=== PATIENT | male | born 1955 | race Caucasian/White ===

== ENCOUNTER 2022-01-10 01:05 | Emergency (ER) | payer MEDICARE, OTHER ==
[~2022-01-10] VITALS: Ht 185.4 cm; Wt 97.7 kg
--- NOTE | 2022-01-10 01:16 | PHYS DOC ---
General Adult EDM: Chief Complaint: HIP PAIN HPI: HPI: Patient is a 66 year old male who was brought here by EMS from home for evaluation of right hip pain. Patient said he was getting ready go to bed, he was walking and hit living room, he tripped and fell down on his right hip, hit the hardwood floor. Patient denies any head or neck injury, denies any knee pain, denies any leg pain, denies any upper extremity pain. Patient denies any back pain. Patient is not on any blood thinner. Patient denies any chest pain or any trouble breathing before the fall. Review of Systems: Review of Systems: Constitutional: Denies fever or chills. [] Eyes: Denies change in visual acuity. [] HENT: Denies nasal congestion or sore throat. [] Respiratory: Denies cough or shortness of breath. [] Cardiovascular: Denies chest pain or edema. [] GI: Denies abdominal pain, nausea, vomiting, bloody stools or diarrhea. [] : Denies dysuria. [] Musculoskeletal: Denies back pain, positive for right hip Integument: Denies rash. [] Neurologic: Denies headache, focal weakness or sensory changes. [] Endocrine: Denies polyuria or polydipsia. [] Lymphatic: Denies swollen glands. [] Psychiatric: Denies depression or anxiety. [] Heart Score: C/O Chest Pain: N/A Risk Factors: Risk Factors: DM, Current or recent (<one month) smoker, HTN, HLP, family history of CAD, obesity. Risk Scores: Score 0 - 3: 2.5% MACE over next 6 weeks - Discharge Home Score 4 - 6: 20.3% MACE over next 6 weeks - Admit for Clinical Observation Score 7 - 10: 72.7% MACE over next 6 weeks - Early Invasive Strategies Current Medications: Current Medications Medications (Trade) Dose Ordered Sig/Doug Start Time Stop Time Status Last Admin Dose Admin Fentanyl Citrate (Fentanyl 2ml Vial) 50 mcg 1X ONCE 01/10/22 01:15 01/10/22 01:16 UNV Ondansetron HCl (Zofran) 4 mg 1X ONCE 01/10/22 01:15 01/10/22 01:16 UNV Physical Exam: PE: Constitutional: Well developed, well nourished, no acute distress, non-toxic appearance. [] HENT: Normocephalic, atraumatic, bilateral external ears normal, oropharynx moist, no oral exudates, nose normal. [] Eyes: PERRLA, EOMI, conjunctiva normal, no discharge. [] Neck: Normal range of motion, no tenderness, supple, no stridor. [] Cardiovascular:Heart rate regular rhythm, no murmur [] Lungs & Thorax: Bilateral breath sounds clear to auscultation [] Abdomen: Bowel sounds normal, soft, no tenderness, no masses, no pulsatile masses. [] Skin: Warm, dry, no erythema, no rash. [] Back: No tenderness, no CVA tenderness. [] Extremities: Right hip is tender to palpation, pelvis stable, leg is not shortened or rotated. Neurologic: Alert and oriented X 3, normal motor function, normal sensory function, no focal deficits noted. [] Psychologic: Affect normal, judgement normal, mood normal. [] Current Patient Data: Labs: Laboratory Tests Test 01/10/22 03:10 White Blood Count 9.7 x10^3/uL Red Blood Count 3.94 x10^6/uL Hemoglobin 14.1 g/dL Hematocrit 41.3 % Mean Corpuscular Volume 105 fL Mean Corpuscular Hemoglobin 36 pg Mean Corpuscular Hemoglobin Concent 34 g/dL Red Cell Distribution Width 14.3 % Platelet Count 132 x10^3/uL Neutrophils (%) (Auto) 67 % Lymphocytes (%) (Auto) 23 % Monocytes (%) (Auto) 7 % Eosinophils (%) (Auto) 3 % Basophils (%) (Auto) 1 % Neutrophils # (Auto) 6.5 x10^3/uL Lymphocytes # (Auto) 2.2 x10^3/uL Monocytes # (Auto) 0.6 x10^3/uL Eosinophils # (Auto) 0.3 x10^3/uL Basophils # (Auto) 0.1 x10^3/uL Sodium Level 144 mmol/L Potassium Level 3.2 mmol/L Chloride Level 108 mmol/L Carbon Dioxide Level 19 mmol/L Anion Gap 17 Blood Urea Nitrogen 9 mg/dL Creatinine 0.6 mg/dL Estimated GFR (Cockcroft-Gault) 134.8 BUN/Creatinine Ratio 15 Glucose Level 93 mg/dL Calcium Level 7.1 mg/dL Magnesium Level 1.6 mg/dL Total Bilirubin 0.2 mg/dL Aspartate Amino Transf (AST/SGOT) 40 U/L Alanine Aminotransferase (ALT/SGPT) 46 U/L Alkaline Phosphatase 55 U/L Total Protein 5.9 g/dL Albumin 2.5 g/dL Albumin/Globulin Ratio 0.7 Ethyl Alcohol Level 41 mg/dL Current Medications Medications (Trade) Dose Ordered Sig/Doug Route PRN Reason Start Time Stop Time Status Last Admin Dose Admin Ondansetron HCl (Zofran) 4 mg 1X ONCE IVP 01/10/22 01:30 01/10/22 01:31 DC 01/10/22 01:31 Fentanyl Citrate (Fentanyl 2ml Vial) 50 mcg 1X ONCE IVP 01/10/22 01:30 01/10/22 01:31 DC 01/10/22 01:31 Iohexol (Omnipaque 300 Mg/ml) 75 ml 1X ONCE IV 01/10/22 04:00 01/10/22 04:01 DC 01/10/22 03:52 Magnesium Sulfate 50 ml @ 25 mls/hr 1X ONCE IV 01/10/22 04:00 01/10/22 05:59 01/10/22 04:36 Potassium Chloride (Klor-Con) 40 meq 1X ONCE PO 01/10/22 04:00 01/10/22 04:01 DC 01/10/22 04:35 Info (CONTRAST GIVEN -- Rx MONITORING) 1 each PRN DAILY PRN MC SEE COMMENTS 01/10/22 04:00 01/12/22 03:59 EKG: EKG: [] Radiology/Procedures: Radiology/Procedures: [][facility] [address] [place], [place] [id number] IMAGING REPORT Signed PATIENT: KIRA LONGO ACCOUNT: [id number] : 1955 LOCATION: ER AGE: 66 SEX: M EXAM STATUS: REG ER ORD. PHYSICIAN: IVETT DO DO REASON: FELL ON RIGHT SIDE, RIGHT PELVIC PAIN;OMNI 300,75ML PROCEDURE: CT ABD PELV W/ IV CONTRST ONLY INDICATION: Reason: FELL ON RIGHT SIDE, RIGHT PELVIC PAIN;OMNI 300,75ML / Spl. Instructions: / History: COMPARISON: Earlier same day CT pelvis noncontrast TECHNIQUE: Axial CT images were obtained through the abdomen and pelvis with intravenous contrast. One or more of the following individualized dose reduction techniques were utilized for this examination: 1. Automated exposure control; 2. Adjustment of the mA and/or kV according to patient size; 3. Use of iterative reconstruction technique. FINDINGS: Mitral annulus calcifications and coronary artery calcific atherosclerosis. Vascular: Severe calcific atherosclerosis. Fat-containing inguinal hernias. Hepatobiliary: Liver is low density. Nonspecific but can be seen with fatty infiltration. Small region of low-density within the anterior aspect of the right lobe of the liver measuring approximately 26 mm. No adjacent hemorrhage. Pancreas: No peripancreatic edema. Spleen: Spleen unremarkable. Renal/Bladder: Nonspecific perinephric stranding bilaterally. Subcentimeter low-density right renal lesion which is too small to characterize but a common finding. Gastrointestinal: No periappendiceal inflammatory changes. No dilated loops of bowel to suggest obstruction. Repeat demonstration of right-sided pelvic fracture of the pubic bone with adjacent haziness of the fat and small amount of adjacent blood. No vascular blush is seen within the area. Degenerative changes of the spine. IMPRESSION: * Redemonstration of right pubic bone fracture with edema of the adjacent fat and a small amount of blood. * Liver is low density which can be seen with fatty infiltration. There is an additional lower density component in the right lobe anteriorly. This is commonly secondary to focal fat or a low density lesion but contusion is not excluded given the patient's trauma. There is no adjacent hemorrhage. Electronically signed by: Matilde Mujica MD (01/10/2022 5:02 AM) [id number] DICTATED and SIGNED BY: MATILDE MUJICA MD DATE: 01/10/22 0449 Course & Med Decision Making: Course & Med Decision Making Pertinent Labs and Imaging studies reviewed. (See chart for details) Patient is a 66-year-old male who was brought here by EMS from home after he fell on his right buttock area. Patient sustained a inferior pubic rami fracture, patient was also found to have low magnesium and potassium level in ER. Patient was given potassium and magnesium supplement in ER. Patient was given pain medication in ER, he feel much better. Patient will be discharged home, patient was given the phone number of the orthopedic doctor here for outpatient follow-up and treatment. Patient was amenable to plan of care. Mili Disclaimer: Mili Disclaimer: This electronic medical record was generated, in whole or in part, using a voice recognition dictation system. Departure Departure Impression: Primary Impression: Inferior pubic ramus fracture Additional Impressions: Hypomagnesemia Hypokalemia Disposition: HOME / SELF CARE / HOMELESS Condition: IMPROVED Referrals: BABS BECKWITH Jr. DO Please call this orthopedic physician for outpatient follow up next week. Patient Instructions: Pelvic Fracture, Simple, Adult Additional Instructions: Thank you for visiting our Emergency Department. We appreciate you trusting us with your care. If any additional problems come up don't hesitate to return to visit us. Please follow up with your primary care provider so they can plan additional care if needed and know about the problem that you had. If symptoms worsen come back to the Emergency Department. Any concerning symptoms that start such as chest pain, shortness of air, weakness or numbness on one side of the body, running high fevers or any other concerning symptoms return to the ER. Scripts Hydrocodone/Acetaminophen (Hydrocodone-Acetamin 5-325 mg) 1 Each Tablet 1 EACH PO Q6HRS PRN for PAIN, #20 TAB Prov: IVETT DO DO 01/10/22 IVETT DO DO January 10, 2022 01:16
[2022-01-10] MEDS ORDERED: fentaNYL PF VIAL 100 MCG/2 ML VIAL IVP ONE (01:30)
[2022-01-10] MEDS ORDERED: ONDANSETRON PF 4 MG/2 ML VIAL. IVP ONE (01:30)
--- NOTE | 2022-01-10 03:03 | RAD ---
INDICATION: Reason: FELL, RIGHT HIP AND RIGHT SIDE PELVIC PAIN, NOT ABLE TO WALK DUE TO PAIN / Spl. I nstructions: / History: . COMPARISON: Plain film from earlier same day TECHNIQUE: Axial CT images obtained through the pelvis without contrast. One or more of the following individualized dose reduction techniques were utilized for this examinat ion: 1. Automated exposure control; 2. Adjustment of the mA and/or kV according to patient size; 3 . Use of iterative reconstruction technique. FINDINGS: No evidence of dislocation at the bilateral hips. Severe calcific atherosclerosis. Degenerative changes of the partially visualized lower lumbar spine as well as the sacroiliac joints. Cortical step-off is identified within the right pubic bone just lateral to the symphysis with buckli ng of the cortex of the right inferior pubic ramus. No definite femur fracture proximally. There is some edema and small amount of blood seen adjacent to the fracture site in the pelvis abutti ng the right side of the urinary bladder. Urinary bladder is somewhat distended at time of exam. IMPRESSION: * Mildly displaced right pubic bone fracture with adjacent edema and small amount of blood within th e soft tissues. Electronically signed by: Neri Lomeli MD (01/10/2022 3:00 AM) [id number]
--- NOTE | 2022-01-10 03:06 | RAD ---
INDICATION: Reason: fell, right side thigh pain / Spl. Instructions: / History: COMPARISON: None. IMPRESSION: Right hip: 4 views obtained. No dislocation at the hips. No definite proximal femur fracture. Cortica l step-off at the right pubic bone which could be seen with mildly displaced fracture. Edema of soft tissues. Right femur: 5 views obtained. Calcific atherosclerosis. No definite femur fracture seen. Electronically signed by: Neri Lomeli MD (01/10/2022 3:04 AM) [id number]
[2022-01-10 03:22] LABS: BASO # 0.1 x10^3/uL (0.0-0.2); BASO % 1 % (0-3); EOS # 0.3 x10^3/uL (0.0-0.7); EOS % 3 % (0-3); HEMATOCRIT 41.3 % (39.0-53.0); HEMOGLOBIN 14.1 g/dL (13.0-17.5); LYMPH # 2.2 x10^3/uL (1.0-4.8); LYMPH % 23 % (24-48); MEAN CORPUSCULAR HEMOGLOBIN 36 pg (25-35); MEAN CORPUSCULAR HGB CONC 34 g/dL (31-37); MEAN CORPUSCULAR VOLUME 105 fL (79-100); MONO # 0.6 x10^3/uL (0.0-1.1); MONO % 7 % (0-9); NEUT # 6.5 x10^3/uL (1.8-7.7); NEUT % 67 % (31-73); PLATELET COUNT 132 x10^3/uL (140-400); RED BLOOD COUNT 3.94 x10^6/uL (4.30-5.70); RED CELL DISTRIBUTION WIDTH 14.3 % (11.5-14.5); WHITE BLOOD COUNT 9.7 x10^3/uL (4.0-11.0)
[2022-01-10 03:35] LABS: CALCIUM 7.1 mg/dL (8.5-10.1); CREATININE 0.6 mg/dL (0.7-1.3); GFR 134.8; POTASSIUM 3.2 mmol/L (3.5-5.1)
[2022-01-10 03:41] LABS: ALBUMIN 2.5 g/dL (3.4-5.0); ALBUMIN/GLOBULIN RATIO 0.7 (1.0-1.7); MAGNESIUM 1.6 mg/dL (1.8-2.4); TOTAL BILIRUBIN 0.2 mg/dL (0.2-1.0); TOTAL PROTEIN 5.9 g/dL (6.4-8.2)
[2022-01-10] MEDS ORDERED: MAGNESIUM SULFATE 2GM 50 ML IV ONE (04:00)
[2022-01-10] MEDS ORDERED: POTASSIUM CHLORIDE 10 MEQ TABLET.ER. PO ONE (04:00)
[2022-01-10] MEDS ORDERED: IOHEXOL 300 MG/ML 100ML VIAL. IV ONE (04:00)
[2022-01-10] MEDS ORDERED: CONTRAST GIVEN. MC PRN (04:00)
--- NOTE | 2022-01-10 05:04 | RAD ---
INDICATION: Reason: FELL ON RIGHT SIDE, RIGHT PELVIC PAIN;OMNI 300,75ML / Spl. Instructions: / Histo ry: COMPARISON: Earlier same day CT pelvis noncontrast TECHNIQUE: Axial CT images were obtained through the abdomen and pelvis with intravenous contrast. One or more of the following individualized dose reduction techniques were utilized for this examinat ion: 1. Automated exposure control; 2. Adjustment of the mA and/or kV according to patient size; 3 . Use of iterative reconstruction technique. FINDINGS: Mitral annulus calcifications and coronary artery calcific atherosclerosis. Vascular: Severe calcific atherosclerosis. Fat-containing inguinal hernias. Hepatobiliary: Liver is low density. Nonspecific but can be seen with fatty infiltration. Small regio n of low-density within the anterior aspect of the right lobe of the liver measuring approximately 26 mm. No adjacent hemorrhage. Pancreas: No peripancreatic edema. Spleen: Spleen unremarkable. Renal/Bladder: Nonspecific perinephric stranding bilaterally. Subcentimeter low-density right renal l esion which is too small to characterize but a common finding. Gastrointestinal: No periappendiceal inflammatory changes. No dilated loops of bowel to suggest obstr uction. Repeat demonstration of right-sided pelvic fracture of the pubic bone with adjacent haziness of the f at and small amount of adjacent blood. No vascular blush is seen within the area. Degenerative changes of the spine. IMPRESSION: * Redemonstration of right pubic bone fracture with edema of the adjacent fat and a small amount of blood. * Liver is low density which can be seen with fatty infiltration. There is an additional lower densi ty component in the right lobe anteriorly. This is commonly secondary to focal fat or a low density l esion but contusion is not excluded given the patient's trauma. There is no adjacent hemorrhage. Electronically signed by: Neri Lomeli MD (01/10/2022 5:02 AM) [id number]
[2022-01-10] MEDS ORDERED: HYDR-2759 PO (05:16)
[2022-01-10] MEDS ORDERED: HYDROcodone/APAP 5/325MG 1 TAB TABLET PO ONE (05:30)
[2022-01-10 05:36] VITALS: BP 148/76
== END 2022-01-10 06:00 | disposition home or self-care (01) ==
LOC: ER 01:05
DX: S32.591A Other specified fracture of right pubis, initial encounter for closed fracture (principal); E83.42 Hypomagnesemia; E87.6 Hypokalemia; W18.09XA Striking against other object with subsequent fall, initial encounter; Y93.01 Activity, walking, marching and hiking; Y92.89 Other specified places as the place of occurrence of the external cause; Y99.8 Other external cause status
CPT/HCPCS: 36415; 72192; 73502; 73552; 74177; 80053; 83735; 85025; 96365; 96375; 99285; G0480; J2405; J3010; J3475; Q9967